=== PATIENT | female | born 1945 | race Caucasian/White ===

== ENCOUNTER 2017-10-30 10:57 | Outpatient (CLI) | payer OTHER | END 2017-10-30 11:12 | disposition home or self-care (01) | LOC: RAD 10:57 → MAMO-SONO 10:57 → RAD 11:12 | DX: I10 Essential (primary) hypertension (principal) ==

== ENCOUNTER 2018-04-28 10:27 | Outpatient (CLI) | payer OTHER | END 2018-04-28 17:00 | disposition home or self-care (01) | LOC: MAMO-SONO 10:27 | DX: Z12.31 Encounter for screening mammogram for malignant neoplasm of breast (principal); Z87.898 Personal history of other specified conditions; N60.21 Fibroadenosis of right breast; N60.22 Fibroadenosis of left breast ==

== ENCOUNTER 2019-08-02 07:29 | Outpatient (CLI) | payer OTHER | END 2019-08-02 07:31 | disposition home or self-care (01) | LOC: RAD 07:29 | DX: I10 Essential (primary) hypertension (principal) ==

== ENCOUNTER 2019-12-24 08:20 | Outpatient (CLI) | payer OTHER | END 2019-12-24 08:24 | disposition home or self-care (01) | LOC: NUCLEAR 08:20 | PROVIDERS: ATTEND Internal Medicine Cardiovascular Disease | DX: R07.89 Other chest pain (principal); I50.20 Unspecified systolic (congestive) heart failure | CPT/HCPCS: 78452; 93017; A9500 ==

== ENCOUNTER 2021-06-27 12:10 | Emergency (ER) | payer OTHER ==
[~2021-06-27] VITALS: Ht 160 cm; Wt 73.9 kg
[2021-06-27] MEDS ORDERED: HUMULIN R100 UNIT/1 (12:31)
[2021-06-27] MEDS ORDERED: HUMULIN N100 UNIT/2 IM (12:31)
[2021-06-27] MEDS ORDERED: SYNTHROID125 MCG PO (12:32)
[2021-06-27] MEDS ORDERED: HYZAAR 100-251 EACH PO (12:32)
[2021-06-27] MEDS ORDERED: INDUR (12:34)
[2021-06-27] MEDS ORDERED: EVISTA60 MG PO (12:34)
[2021-06-27] MEDS ORDERED: ISOSORBIDE MONO60 MG PO (12:35)
== END 2021-06-27 15:25 | disposition home or self-care (01) ==
LOC: ER 12:10
DX: I16.0 Hypertensive urgency (principal); I10 Essential (primary) hypertension; R07.89 Other chest pain

== ENCOUNTER 2021-07-20 12:46 | Outpatient (CLI) | payer OTHER ==
[~2021-07-20 12:46] MED LIST: EVISTA60 MG PO; HUMULIN N100 UNIT/2 IM; HUMULIN R100 UNIT/1; HYZAAR 100-251 EACH PO; INDUR; ISOSORBIDE MONO60 MG PO; SYNTHROID125 MCG PO
== END 2021-07-20 12:47 | disposition home or self-care (01) ==
LOC: NUCLEAR 12:46
PROVIDERS: ATTEND Internal Medicine Cardiovascular Disease
DX: J90 Pleural effusion, not elsewhere classified (principal); I26.99 Other pulmonary embolism without acute cor pulmonale
CPT/HCPCS: 78582; A9540

== ENCOUNTER 2022-08-13 10:43 | Emergency (ER) | payer OTHER ==
[~2022-08-13] VITALS: Ht 160 cm; Wt 65.8 kg
[2022-08-13] MEDS ORDERED: ATORVASTATIN CA80 MG (11:05)
[2022-08-13] MEDS ORDERED: ECOTRIN325 M1 (11:05)
[2022-08-13] MEDS ORDERED: TRAZODONE HCL50 MG (11:05)
[2022-08-13] MEDS ORDERED: PEPCID AC20 MG (11:06)
[2022-08-13] MEDS ORDERED: JARDIANCE10 MG (11:06)
[2022-08-13] MEDS ORDERED: LEVOTHYROXINE50 MC1 (11:07)
[2022-08-13] MEDS ORDERED: ACTOS15 MG (11:08)
[2022-08-13] MEDS ORDERED: HORIZANT300 MG (11:08)
[2022-08-13] MEDS ORDERED: HYDRALAZINE HC100 MG (11:08)
[2022-08-13] MEDS ORDERED: AZOR 10-20 MG1 EACH (11:09)
[2022-08-13] MEDS ORDERED: B COMPLEX1 EAC1 (11:09)
[2022-08-13] MEDS ORDERED: DOXAZOSIN MESYLA2 MG (11:10)
== END 2022-08-13 16:17 | disposition home or self-care (01) ==
LOC: ER 10:43
DX: S09.90XA Unspecified injury of head, initial encounter (principal); R40.2412 Glasgow coma scale score 13-15, at arrival to emergency department; W19.XXXA Unspecified fall, initial encounter; Y93.89 Activity, other specified; Y92.9 Unspecified place or not applicable

== ENCOUNTER 2023-04-14 13:42 | Emergency (ER) | payer OTHER ==
[~2023-04-14] VITALS: Ht 165.1 cm; Wt 68.0 kg
[~2023-04-14 13:42] MED LIST changes: +ACTOS15 MG; +ATORVASTATIN CA80 MG; +AZOR 10-20 MG1 EACH; +B COMPLEX1 EAC1; +DOXAZOSIN MESYLA2 MG; +ECOTRIN325 M1; +HORIZANT300 MG; +HYDRALAZINE HC100 MG; +JARDIANCE10 MG; +LEVOTHYROXINE50 MC1; +PEPCID AC20 MG; +TRAZODONE HCL50 MG
== END 2023-04-14 17:49 | disposition home or self-care (01) ==
LOC: ER
DX: S42.321A Displaced transverse fracture of shaft of humerus, right arm, initial encounter for closed fracture (principal); S00.93XA Contusion of unspecified part of head, initial encounter; S40.011A Contusion of right shoulder, initial encounter; S70.01XA Contusion of right hip, initial encounter; S80.01XA Contusion of right knee, initial encounter; S50.11XA Contusion of right forearm, initial encounter; W18.30XA Fall on same level, unspecified, initial encounter; Y93.9 Activity, unspecified; Y92.018 Other place in single-family (private) house as the place of occurrence of the external cause; Y99.9 Unspecified external cause status; I10 Essential (primary) hypertension
CPT/HCPCS: 29126; 70450; 70490; 73000; 73030; 73060; 73070; 73090; 73100; 73502; 73552; 73560; 96372; 99285; J1885

== ENCOUNTER 2024-03-08 13:43 | Outpatient (CLI) | payer OTHER ==
[~2024-03-08 13:43] MED LIST changes: +COZAAR25 MG PO
== END 2024-03-08 13:53 | disposition home or self-care (01) ==
LOC: NUCLEAR 13:43
PROVIDERS: ATTEND Specialist
DX: M81.0 Age-related osteoporosis without current pathological fracture (principal)

== ENCOUNTER 2024-11-09 10:12 | Outpatient (CLI) | payer OTHER | END 2024-11-09 10:16 | disposition home or self-care (01) | LOC: TOM 10:12 | PROVIDERS: ATTEND Physical Medicine & Rehabilitation | DX: G44.201 Tension-type headache, unspecified, intractable (principal) ==

== ENCOUNTER 2024-12-21 10:05 | Outpatient (CLI) | payer OTHER | END 2024-12-21 10:21 | disposition home or self-care (01) | LOC: TOM 10:05 | PROVIDERS: ATTEND Internal Medicine | DX: I63.9 Cerebral infarction, unspecified (principal); I11.9 Hypertensive heart disease without heart failure; I65.29 Occlusion and stenosis of unspecified carotid artery | CPT/HCPCS: 70498; Q9965 ==

== ENCOUNTER 2025-03-23 11:02 | Outpatient (CLI) | payer OTHER | END 2025-03-23 11:07 | disposition home or self-care (01) | LOC: RAD 11:02 | PROVIDERS: ATTEND Internal Medicine Rheumatology | DX: M17.11 Unilateral primary osteoarthritis, right knee (principal); M17.12 Unilateral primary osteoarthritis, left knee; M16.11 Unilateral primary osteoarthritis, right hip; M16.12 Unilateral primary osteoarthritis, left hip ==